=== PATIENT | male | born 1935 | race Caucasian/White ===

== ENCOUNTER 2022-02-06 12:41 | Outpatient (CLI) | payer OTHER | END 2022-02-06 23:59 | disposition home or self-care (01) | LOC: RAD 12:41 | PROVIDERS: ATTEND Nurse Practitioner Family | DX: K21.9 Gastro-esophageal reflux disease without esophagitis (principal); R13.14 Dysphagia, pharyngoesophageal phase | CPT/HCPCS: 74230 ==